=== PATIENT | female | born 1985 | race Asian ===

== ENCOUNTER → 2018-11-06 | Emergency (ER) | payer MEDICAID ==
[~2018-11-06] VITALS: Ht 157.5 cm; Wt 68.0 kg
[~2018-11-06] MED LIST: KETOROLAC TROMETHAMINE 60 MG/2 ML VIAL IM ONE; MORPHINE 4 MG/ML INJ. SYRINGE IM ONE
[2018-11-06 13:05] VITALS: BP_SYST 150
[2018-11-06 15:25] VITALS: BP_SYST 150
== END | disposition still patient (30) ==
LOC: SED 13:04
DX: S13.4XXA Sprain of ligaments of cervical spine, initial encounter (principal); S33.5XXA Sprain of ligaments of lumbar spine, initial encounter; R03.0 Elevated blood-pressure reading, without diagnosis of hypertension; V43.52XA Car driver injured in collision with other type car in traffic accident, initial encounter; Y93.89 Activity, other specified; Y92.410 Unspecified street and highway as the place of occurrence of the external cause; Y99.8 Other external cause status
CPT/HCPCS: 72040; 72100; 96372; 99283; J1885; J2270

== ENCOUNTER 2018-11-14 09:52 | Emergency (ER) | payer MEDICAID ==
[~2018-11-14] VITALS: Ht 157.5 cm; Wt 66.7 kg
[2018-11-14 09:52] VITALS: BP_SYST 122
[2018-11-14] MEDS ORDERED: KETOROLAC TROMETHAMINE 30 MG VIAL IM ONE (10:30)
[2018-11-14 11:45] VITALS: BP_SYST 122
== END 2018-11-14 11:45 | disposition home or self-care (01) ==
LOC: SED 09:52
DX: M62.838 Other muscle spasm (principal); Z90.710 Acquired absence of both cervix and uterus
CPT/HCPCS: 72125; 96372; 99284; J1885